=== PATIENT | female | born 1950 | race Two or more races ===

== ENCOUNTER 2024-07-28 13:35 | Emergency (ER) | payer MEDICARE, SELFPAY ==
[2024-07-28 13:36] VITALS: BP 95/48; PULSE 73; RESP 13; TEMP 36.6; O2SAT 98; BMI 25.9
--- NOTE | 2024-07-28 13:42 | EKG12_ITS ---
Test Reason : SYNCOPE Blood Pressure : */* mmHG Vent. Rate : 62 BPM Atrial Rate : 62 BPM P-R Int : 122 ms QRS Dur : 82 ms QT Int : 412 ms P-R-T Axes : 54 -10 24 degrees QTcB Int : 418 ms Normal sinus rhythm Minimal voltage criteria for LVH, may be normal variant ( R in aVL ) Poor R-wave progression ; consider anterior infarct, lead placement, or normal variant Abnormal ECG Confirmed by MING SANDOVAL, ANGELINE ([id number]), editor book CONRAD ARROYO ([id number]) on 08/02/2024 6:10:43 AM Referred By: KIMI Confirmed By: ANGELINE LAI MD
[2024-07-28] MEDS: 0.9% Normal Saline (1000mL) 1,000 ML 1000 ML IV ×2 (13:48→14:26)
[2024-07-28 13:57] LABS: Absolute Lymphocyte Count 2.02 X10^3/uL (0.83-4.51); Absolute Neutrophil Count 6.6 X10^3/uL (2.0-7.7); Basophil# 0.04 X10^3/uL; Basophil% 0.4 % (0-1); Eosinophil# 0.08 X10^3/uL; Eosinophils% 0.8 % (0-5); Hematocrit 36.2 % (37-47); Hemoglobin 11.9 g/dL (12.0-15.0); Lymphocyte # 2.02 X10^3/ul (0.83-4.51); Lymphocyte % 20.3 % (19-41); Mean Corp Hgb Conc 32.9 g/dL (32-36); Mean Corpuscular Hgb 29.8 pg (27.0-32.0); Mean Corpuscular Volume 90.7 fL (81-99); Mean Platelet Vol. 9.1 fl (6.2-12.0); Monocyte# 1.13 X10^3/uL; Monocyte% 11.4 % (0-10); NRBC Flagged by Analyzer 0 % (0-5); Neutrophil # 6.61 X10^3/uL (2.7-7.7); Neutrophil % 66.4 % (47-70); Platelet Count 226 K/mm3 (150-450); RBC Distribution Width CV 12.3 % (11.6-14.6); RBC Distribution Width SD 40.7 fl (35.1-43.9); Red Blood Count 3.99 M/mm3 (4.2-5.4)
[2024-07-28 14:25] LABS: Anion Gap 13 (5-15); BUN 13 mg/dL (4-19); BUN/Creat Ratio 11.2 RATIO (10-20); Calcium,Total 8.7 mg/dL (7.6-11.0); Carbon Dioxide 19.5 mmol/L (21.0-32.0); Chloride 107 mmol/L (98-108); EST Glomerular Filtration Rate 48 (>60); Estimated Creatinine Clearance 39.75 ml/min (50-250); Glucose 114 mg/dL (70-99); Potassium 3.4 mmol/L (3.3-5.1); Sodium Level 139 mmol/L (133-145)
[2024-07-28 14:36] VITALS: BP 97/51; PULSE 61; RESP 12; O2SAT 100
--- NOTE | 2024-07-28 14:50 | EDS_ITS ---
HPI History of Present Illness Chief Complaint: Syncope Detail of Chief Complaint: Syncopal episode Informant: patient and EMS Onset/Context/Timing Onset: Today and Hours Context: Sudden Onset Timing: Intermittent Quality: Patient was sitting at her desk became warm, nauseous with emesis and diaph Location: Patient passed out while sitting at her desk. She had been at her desk for Current Severity: Mild Maximum Severity: Severe Worsened by: Suspect vasovagal and exacerbated by dehydration Relieved by: Not applicable Associated Symptoms Associated Symptoms: Symptoms of vasovagal reaction Narrative Narrative: Patient is a 73-year-old woman. She has no sniffing and past medical history per patient. Son who is a interventional radiologist called in to check on her. He inform me that she is undergoing evaluation by oncology for possible lymphoma. Patient denied headache, double vision blurred vision loss of vision. Patient denies chest pain of any type. She denies shortness of breath or difficulty breathing. She denies abdominal pain. She had episode of nausea and vomiting prior to EMS arrival. Patient does not recall passing out. She states she had been sitting at her desk for 5 hours. She felt warm became nauseous diaphoretic and passed out. She awoke on the floor. She denies black or maroon-colored stool. Denies hematuria. Denies bruising easily. Denies bleeding of her gums. Prior similar symptoms: No Recent Illness/Hospitalization: No PFSH [facility] Medical History Hyperlipemia Hypothyroid Allergy/AdvReac Type Severity Reaction Status Date / Time No Known Allergies Allergy Verified 07/28/24 13:39 Social History Smoking Status: Never smoker ROS ROS ED Constitutional Constitutional ED: Denies chills, fever(s), subjective or sweats Eyes Eyes: Denies blurry vision or change in vision ENT ENT ED: Denies ear pain, rhinorrhea or sore throat Cardiovascular Cardiovascular: Denies chest pain, palpitations or racing heartbeat Respiratory/Chest Respiratory/Chest: Denies cough, dyspnea or dyspnea on exertion Gastrointestinal Gastrointestinal: Reports nausea and vomiting; Denies abdominal pain, diarrhea or melena Genitourinary Genitourinary ED: Denies dysuria, hematuria or urinary frequency Musculoskeletal Musculoskeletal: Denies arthralgias, myalgias or neck pain Integumentary Denies rash Neurologic Neurologic: Reports weakness; Denies headache(s) Hematologic/Lymphatic Hematologic/Lymphatic: Reports systems reviewed and no addt'l complaints, except as documented EXAM Physical Exam Const Vital Signs: 07/28/24 13:36 07/28/24 14:35 07/28/24 14:36 Temperature 97.9 F Temperature Source Oral Pulse Rate 73 61 Respiratory Rate 13 12 Respiratory Effort Normal Respiratory Pattern Normal Blood Pressure 95/48 L 97/51 L Blood Pressure Mean 63 66 Pulse Ox 98 100 Oxygen Delivery Method Room Air Room Air 07/28/24 15:00 Temperature Temperature Source Pulse Rate 70 Respiratory Rate 14 Respiratory Effort Respiratory Pattern Blood Pressure 110/53 L Blood Pressure Mean 72 Pulse Ox 100 Oxygen Delivery Method Room Air Positive well nourished and well developed Constitutional Narrative: Patient is slightly bradycardic and hypotensive. This may represent a vasovagal prolonged response. General Appearance ED: well developed and NAD; Negative for pallor HEENT Reports dry mucous membranes HEENT Narrative: Head is atraumatic, cephalic. Is no clinical signs of basilar skull fracture. There is no septal deviation hematoma. Uvula is midline. No deviation, protrusion Mouth ED: Yes dry mucous membranes Mouth: dry mucous membranes Eyes PERRL and EOMs intact bilaterally General Eye ED: Negative for pale conjunctiva or scleral icterus Neck no lymphadenopathy, supple and no JVD General: Negative for tenderness Chest Wall inspection of chest normal and palpation of chest normal Resp normal respiratory effort and clear to auscultation bilaterally Cardio regular rhythm, S1 normal heart sound and S2 normal heart sound Rate: bradycardia GI normal to inspection, nondistended, normoactive bowel sounds, non-tender, non- distended and no masses; Negative for hepatosplenomegaly Auscultation: normoactive bowel sounds Palpation: soft Back/Spine no CVA tenderness Extremity normal to inspection General Extremety ED: Negative for edema or tenderness General Extremity: Negative for edema Neuro oriented x3, CN's II-XII intact bilaterally and no sensory deficits noted Sensorium / Orientation: alert Motor Exam: strength 5/5 throughout Psych mental status grossly normal Skin no rashes or lesions noted, no wounds and skin turgor normal General Skin Exam: elasticity normal; Negative for jaundice or pallor MDM MDM MDM Narrative Medical decision making narrative: In fact the patient was hypotensive bradycardic suggest a vasovagal episode. Since she has persistent hypotension and this is not normal for her blood work EKG was obtained and IV fluids was ordered. Did speak with son who informed that she is undergoing workup for lymphoma. There are no prior records for review. Lab Data Attestation: I reviewed the patient's lab results. Lab results narrative: CBC reveals mild anemia with an H&H 11.9 and 36.2. White count is normal. Cortisone she is undergoing treatment/evaluation for lymphoma. CO2 19 with a normal anion gap. Estimated GFR is 48. Creatinine is 1.2. Labs: Laboratory Results - last 24 hr 07/28/24 13:43 WBC 10.0 RBC 3.99 L Hgb 11.9 L Hct 36.2 L MCV 90.7 MCH 29.8 MCHC 32.9 RDW Std Deviation 40.7 RDW Coeff of Tracy 12.3 Plt Count 226 MPV 9.1 Immature Gran % (Auto) 0.700 Neut % (Auto) 66.4 Lymph % (Auto) 20.3 [place] % (Auto) 11.4 H Eos % (Auto) 0.8 Baso % (Auto) 0.4 Absolute Neuts (auto) 6.6 Absolute Lymphs (auto) 2.02 Nucleated RBC % 0 Sodium 139 Potassium 3.4 Chloride 107 Carbon Dioxide 19.5 L Anion Gap 13 BUN 13 Creatinine 1.20 Estim Creat Clear Calc 39.75 L Est GFR (MDRD) Non-Af 48 L BUN/Creatinine Ratio 11.2 Glucose 114 H Calcium 8.7 EKG Initial EKG: Attestation: I personally reviewed and interpreted this EKG as follows: Interpretation: Sinus Rhythm (Rate is 62. Patient has minimal voltage criteria for LVH. CA interval 222 ms. QRS duration 82 ms. QT duration 412 ms. [place] is normal. She has decreased anterior force.) Treatment and Re-Evaluation :: Patient is presently receiving her first liter of normal saline. Blood pressure has improved. Her heart rate is improved as well. Patient's blood pressure improved after 2 L of normal saline. Plan is to discharge to home. Discharge Plan Triage Chief Complaint: Syncope ED Provider: Kyle Quinn Dx/Rx/DC Orders Clinical Impression: Syncope and collapse, Acute hypotension, Acute renal insufficiency, Anterior chest wall pain, Anemia Instructions: ED Fainting, Vagal Reaction, ED Renal Insufficiency Primary Care Provider: [facility] Doctor,Out of Referrals: [facility] Doctor,Out of [Primary Care Provider] - As Needed Print Language: Jordanian Disposition Disposition: Home, Self Care
[2024-07-28 15:00] VITALS: BP 110/53; PULSE 70; RESP 14; O2SAT 100
--- NOTE | 2024-07-28 15:41 | ED.RN ---
informed Dr. Kai SANDOVAL about pt having sternal CP with palpation, no new orders at this time.
[2024-07-28 16:01] VITALS: BP 104/52; PULSE 66; RESP 16; TEMP 36.2; O2SAT 100
== END 2024-07-28 16:02 | disposition home or self-care (01) ==
PROVIDERS: Emergency Provider Emergency Medicine; Visit Provider Emergency Medicine
DX: R55 Syncope and collapse (principal); N28.9 Disorder of kidney and ureter, unspecified; R11.2 Nausea with vomiting, unspecified; D64.9 Anemia, unspecified; I95.9 Hypotension, unspecified; R07.89 Other chest pain; E78.5 Hyperlipidemia, unspecified; R00.1 Bradycardia, unspecified
CPT/HCPCS: 80048; 85025; 93005; 96360; 96361; 99285